=== PATIENT | male | born 1995 | race Caucasian/White ===

== ENCOUNTER 2017-01-22 20:51 | Emergency (ER) | payer OTHER ==
[~2017-01-22] VITALS: Ht 180.3 cm; Wt 120.8 kg
[2017-01-22 20:59] VITALS: TEMP 36.7; Ht 180.3 cm; Wt 120.8 kg
[2017-01-22] MEDS ORDERED: CHLO1TAB PO (21:31)
[2017-01-22] MEDS ORDERED: PSEU240T PO (21:31)
[2017-01-22] MEDS ORDERED: RANITIDINE HCL 150 MG TAB PO STA (21:33)
[2017-01-22] MEDS ORDERED: PRED50TA PO (21:40)
[2017-01-22 21:51] VITALS: BP 150/86; PULSE 76; O2SAT 96
--- NOTE | 2017-01-23 03:26 | EMERGENCY ROOM VISIT NOTE ---
History First contact with patient: 21:31 Chief Complaint: EYE ASSESSMENT Stated Complaint: POISON SUMAC IN RT EYE, SWELLING, ASTHMA History of Present Illness The patient is a 21 year old male who presents to the Emergency Room with complaints of itchy rash to right-sided face and right arm after coming in contact with poison ruchi or sumac per patient. Patient states his face is quite itchy. His eyes tearing well and was swollen this morning but is slightly better after taking Zyrtec. Patient denies eye pain, loss of vision, chest pain , dyspnea, abdominal pain, fever, chills. He states his throat feels itchy. He has asthma and is concerned about this. Review of Systems See HPI for pertinent positives & negatives. A total of 10 systems reviewed and were otherwise negative. Past Medical/Surgical History Asthma Social History Smoking Status: Never Smoker Smokeless Tobacco Use: No Drug Use: none Housing Status: lives with family Occupation Status: employed Current/Historical Medications Scheduled Prednisone (Prednisone), 50 MG PO DAILY Scheduled PRN Chlorpheniramine-Phenylephrine (Advil Allergy & Congestio), 1 DOSE PO DIRECTED PRN for ALLERGY/CONGESTION Pseudoephedrine Hcl (Sudafed 24 Hour), 240 MG PO Q24H PRN for CONGESTION Allergies Coded Allergies: Dust (Verified Allergy, Intermediate, ITCHY EYES, RUNNY NOSE, SNEEZING, CONGESTION, 01/22/17) POLLEN (Verified Allergy, Intermediate, ITCHY EYES, RUNNY NOSE, SNEEZING, CONGESTION, 01/22/17) Physical Exam Vital Signs Date Time Temp Pulse Resp B/P (MAP) Pulse Ox O2 Delivery O2 Flow Rate FiO2 01/22/17 21:51 76 20 150/86 96 Room Air 01/22/17 20:59 36.7 72 18 157/93 100 Room Air Right Eye Acuity: 20/50 Left Eye Acuity: 20/30 Pain Rating (0-10): 3.0 Physical Exam VITALS: Vitals are noted on the nurse's note and reviewed by myself. Vital signs stable. GENERAL: Pleasant male, in no acute distress, nondiaphoretic, well-developed well-nourished. SKIN: Right forearm is erythematous with glossy pustules concerning for rhus dermatitis and right orbital region erythematous with glossy pustules also concerning for Rhus dermatitis The rest of the skin was without rashes, erythema , edema, or bruising. There is no tenting of the skin. Capillary reflex less than 2 seconds. HEAD: Normocephalic atraumatic. EARS: External auditory canals clear, tympanic membranes pearly jesus without erythema or effusion bilaterally. EYES: Pupils equal round and reactive to light and accommodation. Conjunctivae without injection, sclerae without icterus. Extraocular movements intact. No foreign bodies were visualized. NOSE: Patent, turbinates without inflammation or discharge. No sinus tenderness. MOUTH: Mucous membranes moist. Pharynx without erythema or exudate. Uvula midline. Airway patent. Tongue does not deviate. NECK: Supple without nuchal rigidity. No lymphadenopathy. No thyromegaly. Cervical spine is nontender. No JVD. HEART: Regular rate and rhythm without murmurs gallops or rubs. LUNGS: Clear to auscultation bilaterally without wheezes, rales or rhonchi. No dullness to percussion. No retractions or accessory muscle use. ABDOMEN: Positive bowel sounds x 4. Normal tympanic percussion. Soft, nontender, without masses or organomegaly. Renae sign negative. No guarding or rebound tenderness. MUSCULOSKELETAL: No muscle atrophy, erythema, or edema noted. NEURO: Patient was alert and oriented to person place and time. Normal sensation to light and sharp touch. No focal neurological deficits. Medical Decision & Procedures Medications Administered Medications (Trade) Dose Ordered Sig/Chu Route Start Time Stop Time Status Last Admin Dose Admin Prednisone (PredniSONE TAB) 60 mg NOW STAT PO 01/22/17 21:33 01/22/17 21:34 DC 01/22/17 21:49 60 MG Diphenhydramine HCl (Benadryl Cap) 50 mg NOW ONCE PO 01/22/17 21:45 01/22/17 21:46 DC 01/22/17 21:49 50 MG Ranitidine HCl (zANTac TAB) 150 mg ONE STAT PO 01/22/17 21:33 01/22/17 21:34 DC 01/22/17 21:49 150 MG ED Course Prior records/ancillary studies reviewed. Triage Nursing notes reviewed. Additional history obtained from friend The patient's history was concerning for a rash. Differential diagnosis: Etiologies such as contact dermatitis, viral exanthem, urticaria, allergic reaction, Allred-Cedric syndrome, toxic epidermal necrolysis, erythema multiforme, cellulitis, scabies, HSV, varicella, zoster, eczema, staph scalded skin syndrome, fungal infection, as well as others were entertained. Physical examination: Patient was alert, interactive and well-appearing ER treatment provided: Steroids, Benadryl, Zantac On reassessment the patient felt better. Diagnostic interpretation by me: Deferred The etiology for the patient's rash appears to be consistent with rhus dermatitis. Patient had no inner eye abnormality. This all appeared to be periorbital and on the forearm. Patient was well-appearing. He no signs of airway compromise. Lungs are clear to auscultation. He is well-appearing. He was advised to take the medications as directed and to avoid scratching at the area as this can lead to secondary bacterial infection from excoriation. He was advised to follow-up family care in a few days or here in the ER sooner for eye pain, difficulty breathing, worsening signs or symptoms or as needed.. By the evaluation outlined above emergent etiologies such as Allred-Cedric syndrome, toxic epidermal necrolysis, erythema multiforme, cellulitis, scabies, HSV, varicella, zoster, staph scalded skin syndrome, urticaria, as well as others were deemed relatively unlikely. The pt informed about the findings as listed above. All questions were answered and pleased with the treatment. Return instructions were outlined and the patient was discharged in stable condition. Outpatient prescription management: Prednisone Referral: The patient was referred back to their primary care physician for follow-up in 2 -3 days for a recheck of the current condition. Medical Decision As above Impression Primary Impression: Rhus dermatitis Departure Information Dispostion Home / Self-Care Condition GOOD Prescriptions Prednisone (Prednisone) 50 Mg Tab 50 MG PO DAILY for 4 Days, #4 TAB Prov: Betty Steele PA-C 01/22/17 Forms WORK / SCHOOL INSTRUCTIONS, HOME CARE DOCUMENTATION FORM, Days off work : 1 Work Instructions, IMPORTANT VISIT INFORMATION Patient Instructions My [facility], ED Dermatitis Poison Ruchi Additional Instructions DO NOT drive, drink alcohol, operate machinery, or perform dangerous activities today. You were given medications in the ER that can affect your ability to safely function or operate a vehicle. Prednisone 50mg: Once daily until the prescription is finished. It is best to take this earlier in the day as some patients note occasional difficulty falling asleep when taken in the late evening. Diphenhydramine(Benadryl) 25mg: use 25 to 50 mg every six hours for swelling, itching, or hives. This medication is sedating and will cause drowsiness. Avoid alcohol, operating machinery or dangerous equipment, working on ladders or roofs, DRIVING, or situations where being under the influence may be dangerous. Zantac 75: Take two pills twice a day along with Benadryl as needed for swelling , itching, or hives. Most people know this for its affect on the stomach, but it also acts similar to, but less potent than Benadryl for allergic reactions. Both the Benadryl and the Zantac are available [id number]. Continue current medications. Return to the emergency department for worsening of your rash, swelling of your face, lips, tongue, or throat, difficulty breathing, vomiting, or as needed. Follow-up with your primary care physician in 2 to 3 days for a recheck of your current condition.
== END 2017-01-22 22:03 | disposition home or self-care (01) ==
LOC: C.EDB 20:53 → C.EDD 22:03
DX: L23.7 Allergic contact dermatitis due to plants, except food (principal); J45.909 Unspecified asthma, uncomplicated; Z91.09 Other allergy status, other than to drugs and biological substances